=== PATIENT | male | born 1970 | race Caucasian/White ===

== ENCOUNTER 2017-02-18 18:35 | Emergency (ER) | payer OTHER ==
[~2017-02-18] VITALS: Ht 182.9 cm; Wt 113.4 kg
[~2017-02-18 18:35] MED LIST changes: -DIVA500T7 PO; -ELET40TA PO; -MAGN400T26 PO; -RIBO100T3 PO; -UBID300C PO
--- OUTSIDE RECORDS SUMMARY | 2017-02-18 18:39 | XMS REPORT | Continuity of Care Document ---
Author Author [facility] Address Unknown Phone Unavailable Support Name Relationship Address Phone JASON SANCHEZ MD Caregiver [address] [place] [address] CORA CRATAGENA DO Caregiver [address] [place] [address] Insurance Providers Payer Name Policy Number Subscriber Name Relationship Other1 [id number] Arleen Brothers 19 Self / Same As Patient Advance Directives Directive Response Recorded Date/Time Advanced Directives No 04/10/16 6:49am Chief Complaint and Reason for Visit Chief Complaint Pain Reason for Visit Migraine Problems Active Problems Medical Problem Onset Date Status Migraine Unknown Acute Medications Current Home Medications Medication Dose Units Route Directions Days/Qty Instructions Start Date Pantoprazole Sod 40 Mg 40 Mg ORAL Twice A Day 04/10/16 Social History Query Response Start Date Stop Date Smoking Status Never smoker Hospital Discharge Instructions No hospital discharge instructions. Plan of Care Discharge Date 04/10/16 7:05am Disposition 01 HOME OR SELF-CARE Condition at Discharge Stable Instructions/Education Provided Migraine Headache (ED) Prescriptions See Medication Section Additional Instructions/Education Home, rest Follow up as needed Care Plan and Goals ~~Discharge Care Plan~~ Problem: Headache Goal: Decreased level of pain. Return to usual activities. Instructions: Take medication(s) as directed; follow up with primary care physician as directed; follow patient home care instructions. Home to rest in a quiet dark room. Functional Status No functional status results. Allergies, Adverse Reactions, Alerts Allergen Type Severity Reaction Status Last Updated Morphine Allergy Unknown Active 04/10/16 Immunizations Name Given Type Status Date Influenza Vaccine Received if Current 07/13/15 Historical Historical Vital Signs Acute Vital Signs Vital Response Date/Time Temperature (Fahrenheit) 97.0 04/10/2016 7:16am Pulse 78 bpm 04/10/2016 7:16am Respirations 16 04/10/2016 7:16am Height 6 ft 0 in Weight 235 lb Body Mass Index 31.0 kg/m^2 Results No known relevant diagnostic tests, laboratory data and/or discharge summary. Procedures No known history of procedures. Encounters Encounter Location Arrival/Admit Date Discharge/Depart Date Attending Provider Departed Emergency Room [facility] 04/10/16 6:45am 04/10/16 7:05am JASON SANCHEZ MD Recent Diagnosis
[2017-02-18] MEDS ORDERED: ELET40TA PO (18:58)
[2017-02-18] MEDS ORDERED: MAGN400T26 PO (18:58)
[2017-02-18] MEDS ORDERED: DIVA500T7 PO (18:58)
[2017-02-18] MEDS ORDERED: UBID300C PO (18:58)
[2017-02-18] MEDS ORDERED: RIBO100T3 PO (18:58)
--- NOTE | 2017-02-18 19:37 | Diagnostic Imaging Report ---
INDICATION: Lateral right ankle pain after twisting injury. DISCUSSION: Three views of the right ankle were obtained, no comparison. Small plantar calcaneal enthesophyte is noted. The ankle mortise is symmetric. No fracture or dislocation. Soft tissue swelling is noted laterally. IMPRESSION: 1. Lateral soft tissue swelling. No acute osseous abnormality identified. Dictated by: Dictated on workstation # [id number]
[2017-02-18 20:47] VITALS: BP 102/88
== END 2017-02-18 20:48 | disposition home or self-care (01) ==
LOC: ED 18:37
DX: S93.491A Sprain of other ligament of right ankle, initial encounter (principal); X50.9XXA Other and unspecified overexertion or strenuous movements or postures, initial encounter; Y92.239 Unspecified place in hospital as the place of occurrence of the external cause; Y99.0 Civilian activity done for income or pay
CPT/HCPCS: 73610; 99282

== ENCOUNTER → 2017-02-18 | Outpatient (REF) ==
[~2017-02-18] MED LIST: DIVA500T7 PO; ELET40TA PO; MAGN400T26 PO; PANT40TA3 PO; RIBO100T3 PO; UBID300C PO
== END ==
LOC: EUOP 18:41
PROVIDERS: ATTEND Family Medicine
DX: Z02.89 Encounter for other administrative examinations (principal); Z02.83 Encounter for blood-alcohol and blood-drug test